=== PATIENT | female | born 1960 | race Caucasian/White ===

== ENCOUNTER → 2023-06-29 15:09 | Outpatient (CLI) | payer OTHER, SELFPAY ==
--- NOTE | ~2023-06-29 | CT_ITS ---
EXAMINATION: CT sinus wo con DATE: 06/29/2023 15:23 INDICATION: Recurrent sinusitis for years. Left facial pain TECHNIQUE: Computed tomography (CT) of the paranasal sinuses was performed without contrast. Iterativ e reconstruction technique was employed. Exam dose: 416.73 mGy-cm total exam DLP. COMPARISON: 12/27/2018 CT sinuses FINDINGS: Since 12/27/2018 there is extensive lucency and cortical bone destruction along the posterio r approximately 1.8 cm above the left alveolar ridge. The upper left second bicuspid and the first th rough third molar teeth are absent. There is slight rightward bowing of the inferior portion nasal septum is slight leftward bowing of th e upper portion. The inferior nasal turbinates are prominent but symmetric in size. There is partial resection apparen tly of the right middle nasal turbinate. There is mild mucoperiosteal thickening at the maxillary ostium and infundibulum bilaterally, without occlusion. The paranasal sinuses and mastoid air cells are normally developed and aerated. IMPRESSION: Posterior left alveolar ridge bone destruction, new finding since 12/27/2018 Minimal inferior rightward and superior leftward bowing of the nasal septum Mild soft tissue thickening at the maxillary ostium and infundibulum bilaterally, without occlusion Patent paranasal sinuses and mastoid air cells Reviewed, dictated and finalized at [facility]. Reviewed, dictated and finalized at [facility]. 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
== END ==
PROVIDERS: Visit Provider Otolaryngology
DX: J34.89 Other specified disorders of nose and nasal sinuses (principal); M26.79 Other specified alveolar anomalies; J34.2 Deviated nasal septum
CPT/HCPCS: 70486

== ENCOUNTER 2024-05-28 11:48 | Outpatient (CLI) | payer OTHER, SELFPAY ==
--- NOTE | ~2024-05-28 | CT_ITS ---
EXAMINATION: CT facial bones w con DATE: 05/28/2024 12:20 INDICATION: Chronic sinusitis. TECHNIQUE: Computed tomography (CT) of the facial bones and maxillofacial region was performed with 7 5 mL Omnipaque 350 intravenous contrast. Automated exposure control and iterative reconstruction tech [employer] were employed. The dose-length product was 290.57 mGy-cm. COMPARISON: CT sinus 06/29/23 FINDINGS: There is a 1.8 cm cyst in the strap muscles to the right of midline. There is mild mucosal thickening in the frontal recesses and anterior ethmoid sinuses. The sphenoid sinuses are clear. Ther e is mild mucosal thickening in right maxillary sinus. Left maxillary sinus is clear. There is mild l eftward deviation of anterior nasal septum and mild rightward deviation of posterior nasal septum. Th e ostiomeatal units are patent. There is severe cervical spondylosis. IMPRESSION: 1. Mild mucosal thickening in the paranasal sinuses. 2. 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 Reviewed, dictated and finalized at [facility]. 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 Mild mucosal thickening in the paranasal sinuses. 2. 1.8 cm cyst in the strap muscles to the right of midline, likely a thyroglos raghu duct cyst.
[2024-05-28 12:06] LABS: Estimated Glomerular Filt Rate > 60
== END 2024-05-28 11:49 | disposition home or self-care (01) ==
LOC: MICIMG 11:48
PROVIDERS: Referring Provider Nurse Practitioner Family; Visit Provider Nurse Practitioner Family
DX: J34.1 Cyst and mucocele of nose and nasal sinus (principal); J32.9 Chronic sinusitis, unspecified
CPT/HCPCS: 70487; Q9967